=== PATIENT | female | born 1965 | race Caucasian/White ===

== ENCOUNTER → 2016-04-08 | Outpatient (CLI) | payer BC ==
[~2016-04-08] MED LIST: ACET-1256 PO; FERR1TAB61 PO; FLUO20CA35 PO; LORA-741 PO; MAGNESIUM TD; MTR600X PO
--- NOTE | 2016-04-08 15:40 | DIAGNOSTIC IMAGING REPORT ---
SUBMANDIBULAR ULTRASONOGRAPHY CLINICAL HISTORY: LT SUB MANDIBULAR ADENOPATHY COMPARISON STUDY: No previous studies for comparison. FINDINGS: At the area of palpable abnormality in the left submandibular region, there is a 16 x 18 x 7 mm hypoechoic nodule, likely representing a lymph node. Clinical follow-up is advocated. IMPRESSION: The palpable abnormality in the region of the left submandibular gland, appears to correspond to a 16 x 18 x 7 mm hypoechoic nodule which likely represents a lymph node. Clinical follow-up is recommended Electronically signed by: Shane Durham M.D. 04/08/2016 3:39 PM Dictated Date/Time: 04/08/2016 3:33 PM
== END | disposition home or self-care (01) ==
LOC: C.ULTR 14:57
PROVIDERS: ATTEND Internal Medicine
DX: R59.0 Localized enlarged lymph nodes (principal)

== ENCOUNTER → 2016-04-13 | Outpatient (CLI) | payer BC ==
[2016-04-21 11:46] LABS: NEO FLOW LYMPH/LEUK STND SEE NEO MISC
== END | disposition home or self-care (01) ==
LOC: C.PATH 08:08
PROVIDERS: ATTEND Internal Medicine
DX: R59.0 Localized enlarged lymph nodes (principal)

== ENCOUNTER → 2016-06-02 | Outpatient (CLI) | payer BC ==
--- NOTE | 2016-06-03 09:07 | DIAGNOSTIC IMAGING REPORT ---
MRI soft tissue neck SOFT TISSUE NECK W/O CONTRAST CLINICAL HISTORY: R22.1,NECK SWELLING pain. Edema. Nodular. TECHNIQUE: MRI multi axial acquisition COMPARISON STUDY: Ultrasound dated 04/08/2016 FINDINGS: Multinodular thyroid. Dominant complex nodule left thyroid lobe previously described with a maximum dimension of 3 cm. Several micronodules of the right thyroid. Several small reactive cervical nodes none of which exceed 6 mm. A marker is placed over a clinically palpable nodule in the left submandibular region. This appears represent a normal left submandibular gland. Salivary glands are unremarkable. Airways patent. No evidence for abnormal mass or collection. IMPRESSION: 1. The clinically palpable nodularity density left submandibular region appear to represent a normal left submandibular salivary gland. 2. No evidence for significant pathologic adenopathy. 3. Multinodular thyroid with a stable unchanging dominant nodule of the left thyroid measuring 3 cm Electronically signed by: Ladarius Aponte M.D. 06/03/2016 9:05 AM Dictated Date/Time: 06/03/2016 8:57 AM
== END | disposition home or self-care (01) ==
LOC: C.MRI 10:15
PROVIDERS: ATTEND Dentist Oral and Maxillofacial Surgery
DX: R22.1 Localized swelling, mass and lump, neck (principal)

== ENCOUNTER → 2016-06-24 | Outpatient (CLI) | payer BC ==
[2016-06-24 18:52] LABS: BASO % 1.3 %; BASO ABS # 0.05 K/uL (0-0.2); COMPLETE YES; EOS % 3.5 %; HEMATOCRIT 43.9 % (37-47); LYMPH % 35.3 %; LYMPH ABS # 1.41 K/uL (1.2-3.4); MEAN CORPUSCULAR HEMOGLOBIN 30.8 pg (25-34); MEAN CORPUSCULAR HGB CONC 32.8 g/dl (32-36); MEAN PLATELET VOLUME 11.3 fL (7.4-10.4); MONO % 12.5 %; NEUT % 47.4 %; PLATELET COUNT 244 K/uL (130-400); RED BLOOD COUNT 4.67 M/uL (4.2-5.4)
[2016-06-24 19:10] LABS: ALT/SGPT 62 U/L (12-78); AST/SGOT 28 U/L (15-37); BLOOD UREA NITROGEN 12 mg/dl (7-18); BUN/CREATININE RATIO 14.7 (10-20); CALCIUM 9.2 mg/dl (8.5-10.1); CARBON DIOXIDE 30 mmol/L (21-32); CHLORIDE 104 mmol/L (98-107); GLUCOSE 79 mg/dl (70-99); POTASSIUM 3.8 mmol/L (3.5-5.1); SODIUM 140 mmol/L (136-145)
[2016-06-24 19:21] LABS: ALB/GLOB RATIO 1.2 (0.9-2); ALKALINE PHOSPHATASE 72 U/L (45-117); CHOLESTEROL 204 mg/dl (0-200); CHOLESTEROL/HDL RATIO 2.1; HDL CHOLESTEROL 97 mg/dl; THYROID STIMULATING HORMONE 0.683 uIu/ml (0.300-4.500); TRIGLYCERIDES 58 mg/dl (0-150); VERY LOW DENSITY LIPOPROT CALC 12 mg/dl
== END | disposition home or self-care (01) ==
LOC: C.LABSPEC 17:52
PROVIDERS: ATTEND Internal Medicine
DX: R53.83 Other fatigue (principal); E04.1 Nontoxic single thyroid nodule

== ENCOUNTER → 2016-09-02 | Outpatient (CLI) | payer BC ==
--- NOTE | 2016-09-02 16:20 | MAMMOGRAPHY REPORT ---
BILATERAL DIGITAL SCREENING MAMMOGRAM WITH CAD: 09/02/2016 CLINICAL HISTORY: Routine screening. Patient has no complaints. TECHNIQUE: Bilateral CC and MLO views of the breasts with and without implant displacement views were obtained. Current study was also evaluated with a Computer Aided Detection (CAD) system. COMPARISON: Comparison is made to exams dated: 05/09/2015 mammogram, 02/01/2014 mammogram, 01/05/2012 m ammogram, 07/22/2009 mammogram - [facility], and 11/09/2007. BREAST COMPOSITION: The tissue of both breasts is heterogeneously dense, which may obscure small mas ses. FINDINGS: Bilateral subpectoral silicone implants are stable compared to prior exams. There are a f ew scattered benign-appearing microcalcifications. No new suspicious mass, architectural distortion or cluster of microcalcifications is seen. IMPRESSION: ACR BI-RADS CATEGORY 1: NEGATIVE There is no mammographic evidence of malignancy. A 1 year screening mammogram is recommended. The pa tient will receive written notification of the results. Approximately 10% of breast cancers are not detected with mammography. A negative mammographic report should not delay biopsy if a clinically suggestive mass is present. Rachelle Parry M.D. ay/:09/02/2016 15:31:19 Apprentice Electrician: Gina LANZA(Alfred)(Ankita), [facility] letter sent: Normal 1/2 BI-RADS Code: ACR BI-RADS Category 1: Negative
== END | disposition home or self-care (01) ==
LOC: C.MAMM 14:35
PROVIDERS: ATTEND Obstetrics & Gynecology
DX: Z12.31 Encounter for screening mammogram for malignant neoplasm of breast (principal)

== ENCOUNTER → 2017-05-09 | Outpatient (CLI) | payer BC ==
--- NOTE | 2017-05-09 15:19 | MAMMOGRAPHY REPORT ---
UNILATERAL LEFT DIGITAL DIAGNOSTIC MAMMOGRAM TOMOSYNTHESIS WITH CAD AND TARGETED LEFT ULTRASOUND: 04/28 CLINICAL HISTORY: 51-year-old woman presented with left breast and axillary pain that occurred approx imately 3 weeks ago but has since dissipated. The pain was located in the deep posterior tissues of the left upper outer quadrant. No skin erythema, palpable lump or nipple discharge. Patient has a h istory of bilateral breast implants, with most recent surgery performed in 2009. TECHNIQUE: Left breast CC and MLO views with and without implant displacement views were obtained. T omosynthesis was also performed on the left breast implant displaced views. Current study was also e valuated with a Computer Aided Detection (CAD) system. COMPARISON: Comparison is made to exams dated: 09/02/2016 mammogram, 05/09/2015 mammogram, 02/01/2014 ma mmogram, 01/24/2013 mammogram, 01/05/2012 mammogram, and 12/24/2010 mammogram - [facility]. BREAST COMPOSITION: The tissue of the left breast is heterogeneously dense, which may obscure small masses. FINDINGS: An asymmetry in the far superior left breast projecting above the implant and over the pect oralis muscle on the MLO view appears similar to multiple prior mammograms and likely represents a ly mph node. No obvious new mass, asymmetry, area of architectural distortion or suspicious calcificati ons are seen in the left breast. No focal skin thickening identified. Targeted ultrasound was performed in the left axilla and left lateral breast with particular attentio n to the crease between the breast tissue and midaxillary line in the area of pain pointed out by the patient. In the left axilla, 2 morphologically normal lymph nodes are identified, without evidence of suspicious mass or suspicious lymphadenopathy. No definite implant rupture identified, although M RI is the test of choice. Overall, no suspicious solid masses seen on targeted left breast ultrasoun d. IMPRESSION: ACR BI-RADS CATEGORY 2: BENIGN, TARGETED ULTRASOUND ACR BI-RADS CATEGORY 2: BENIGN 1. There is no mammographic or targeted sonographic evidence of malignancy in the left breast, with particular attention to the area of pain in the left axilla and lateral left breast, which has since subsided. Continued clinical follow-up and clinical monitoring is recommended. 2. The patient is due for annual bilateral screening mammography in August 2017, which she scheduled p rior to leaving our department. 3. If there is clinical concern for an implant rupture, noncontrast MRI is the test of choice for as sessing both intracapsular and extracapsular rupture. These results and recommendations were discussed with the patient at the time of the exam. Approximately 10% of breast cancers are not detected with mammography. A negative mammographic report should not delay biopsy if a clinically suggestive mass is present. Rachelle Parry M.D. ay/:05/09/2017 11:34:08 Child Nutrition Assistant: Nahomy LANZA(Alfred)(Ankita), [facility] letter sent: Normal 1/2 BI-RADS Code: ACR BI-RADS Category 2: Benign Ultrasound BI-RADS: ACR BI-RADS Category 2: Benign
== END | disposition home or self-care (01) ==
LOC: C.MAMM 10:17
PROVIDERS: ATTEND Obstetrics & Gynecology
DX: N64.4 Mastodynia (principal); Z98.82 Breast implant status